=== PATIENT | male | born 1955 | race Two or more races ===

== ENCOUNTER 2018-11-18 13:48 | Emergency (ER) | payer OTHER ==
[2018-11-18 14:59] VITALS: RESP 16
[2018-11-18] MEDS ORDERED: HYDROcodone/APAP 7.5-325MG 1 EACH TAB PO ONE (15:48)
[2018-11-18 16:08] LABS: Basophils % (A) 0 %; Eosinophils # (A) 0.2 k/uL (0-0.7); Eosinophils % (A) 1 %; HGB 16.2 gm/dL (13.0-17.5); Lymphocytes # (A) 1.5 k/uL (1.0-4.8); Lymphocytes % (A) 12 %; MCH 30.2 pg (25.0-35.0); MCHC 31.7 g/dL (31.0-37.0); MCV 95.1 fL (80.0-100.0); Mean Platelet Volume 7.6; Monocytes # (A) 0.5 k/uL (0-1.0); Monocytes % (A) 4 %; Neutrophils # (A) 9.9 k/uL (1.3-7.7); Neutrophils % (A) 81 %; Platelet Count 206 k/uL (150-450); RBC 5.36 m/uL (4.30-5.90); RDW 14.4 % (11.5-15.5); WBC 12.1 k/uL (3.8-10.6)
[2018-11-18 16:16] LABS: Albumin 4.6 g/dL (3.5-5.0); Calcium 9.6 mg/dL (8.4-10.2); Potassium 4.6 mmol/L (3.5-5.1); Total Bilirubin 0.4 mg/dL (0.2-1.3); Total Protein 7.6 g/dL (6.3-8.2)
--- NOTE | 2018-11-18 16:17 | US ---
EXAMINATION TYPE: US venous doppler duplex LE RT DATE OF EXAM: 11/18/2018 4:11 PM COMPARISON: NONE CLINICAL HISTORY: Pain. Pain right lower leg SIDE PERFORMED: right TECHNIQUE: The lower extremity deep venous system is examined utilizing real time linear array sonog clinton with graded compression, doppler sonography and color-flow sonography. VESSELS IMAGED: External Iliac Vein (EIV) Common Femoral Vein Deep Femoral Vein Greater Saphenous Vein * Femoral Vein Popliteal Vein Small Saphenous Vein * Proximal Calf Veins (* superficial vessels) Right Leg: Technical limitations due to patient's body habitus and patient unable to hold still. No evidence of DVT as visualized IMPRESSION: No evidence of deep venous thrombosis in the right leg.
[2018-11-18 16:22] LABS: INR 0.9 (<1.2); Partial Thromboplastin Time 23.8 sec (22.0-30.0); Prothrombin Time 9.5 sec (9.0-12.0)
[2018-11-18] MEDS ORDERED: KETOROLAC 60 MG/2 ML VIAL IM STA (16:58)
--- NOTE | 2018-11-18 17:00 | ED ---
General Adult HPI - General Chief complaint: Extremity Problem,Nontraumatic Stated complaint: Leg pain Time Seen by Provider: 11/18/18 15:35 Source: patient, RN notes reviewed, old records reviewed Mode of arrival: ambulatory Limitations: no limitations - History of Present Illness Initial comments: 63-year-old male patient past medical history hypertension, diabetes presents ED with 3 days of right lower extremity pain. Patient reports he has pain in the anterior and posterior aspect of his calf. Patient reports has been ongoing for 3 days. Patient states that he does stand for long periods of time. Patient denies any falls or trauma. Patient denies any recent long travel, denies any personal history of blood clots, denies any active malignancy or use of exogenous hormone products. Patient denies any chest pain or shortness of breath. Systemic: Pt denies fatigue, fever/chills, rash. Pt denies weakness, night sweats, weight loss. Neuro: Pt denies headache, visual disturbances, syncope or pre-syncope. HEENT: Pt denies ocular discharge or irritation, otalgia, rhinorrhea, pharyngitis or notable lymphadenopathy. Cardiopulmonary: Pt denies chest pain, SOB, heart palpitations, dyspnea on exertion. Abdominal/GI: Pt denies abdominal pain, n/v/d. : Pt denies dysuria, burning w/ urination, frequency/urgency. Denies new onset urinary or bowel incontinence. MSK: Pt denies loss of strength or function in extremities. Neuro: Pt denies new onset weakness, paresthesias. - Related Data Previous Rx's Medication Instructions Recorded Ibuprofen [Motrin] 600 mg PO Q6HR PRN #40 day 11/18/18 Allergies Allergy/AdvReac Type Severity Reaction Status Date / Time No Known Allergies Allergy Verified 11/18/18 14:59 Review of Systems ROS Statement: Those systems with pertinent positive or pertinent negative responses have been documented in the HPI. ROS Other: All systems not noted in ROS Statement are negative. Past Medical History Past Medical History: Atrial Fibrillation, Diabetes Mellitus, Hypertension History of Any Multi-Drug Resistant Organisms: None Reported Past Surgical History: No Surgical Hx Reported Past Psychological History: No Psychological Hx Reported Smoking Status: Never smoker Past Alcohol Use History: None Reported Past Drug Use History: None Reported General Exam - General Exam Comments Initial Comments: Constitutional: NAD, AOX3, Pt has pleasant affect. HEENT: NC/AT, trachea midline, neck supple, no lymphadenopathy. Posterior pharynx non erythematous, without exudates. External ears appear normal, without discharge. Mucous membranes moist. Eyes PERRLA, EOM intact. There is no scleral icterus. No pallor noted. Cardiopulmonary: RRR, no murmurs, rubs or gallops, no JVD noted. Lungs CTAB in anterior and posterior norris. No peripheral edema. Abdominal exam: Abdomen soft and non-distended. Abdomen non-tender to palpation in all 4 quadrants. Bowel sounds active in LLQ. No hepatosplenomegaly. No ecchymosis Neuro: CN II-XII grossly intact. No nuchal rigidity. No raccon eyes, no horn sign, no hemotympanum. No cervical spinal tenderness. MSK: Right lower extremity distal to the knee mildly tender to palpation anterior and posterior aspect. No unilateral leg swelling, no erythema or skin changes. Distal pulses intact and equal. homans sign negative bilaterally. Posterior tibialis and radial pulse +2 bilaterally. Sensation intact in upper and lower extremities. Full active ROM in upper and lower extremities, 5/5 stregnth. Limitations: no limitations Course Vital Signs 11/18/18 14:56 Temperature 97.9 F Pulse Rate 86 Respiratory 16 Rate Blood Pressure 143/93 O2 Sat by Pulse 95 Oximetry Medical Decision Making - Medical Decision Making 63-year-old male patient was ED with 3 days of right lower extremity pain. Patient vital signs stable, afebrile. Physical exam displayed: Right lower extremity distal to the knee mildly tender to palpation anterior and posterior aspect. No unilateral leg swelling, no erythema or skin changes. Distal pulses intact and equal. homans sign negative bilaterally. Posterior tibialis and radial pulse +2 bilaterally. Sensation intact in upper and lower extremities. Full active ROM in upper and lower extremities, 5/5 stregnth. Laboratory investigations revealed mild leukocytosis, overall noncompressive. Ultrasound right lower extremity displayed no evidence of DVT in the right leg. Patient likely suffering from myalgia to prolonged standing. Patient's other anti- inflammatory medications, follow up with primary care provider tomorrow, return to ER if condition worsens. Case discussed with Dr. Mcdaniel. - Lab Data Result diagrams: 11/18/18 15:56 11/18/18 15:56 Lab Results 11/18/18 11/18/18 11/18/18 Range/Units 15:56 15:56 15:56 WBC 12.1 H (3.8-10.6) k/uL RBC 5.36 (4.30-5.90) m/uL Hgb 16.2 (13.0-17.5) gm/dL Hct 51.0 (39.0-53.0) % MCV 95.1 (80.0-100.0) fL MCH 30.2 (25.0-35.0) pg MCHC 31.7 (31.0-37.0) g/dL RDW 14.4 (11.5-15.5) % Plt Count 206 (150-450) k/uL Neutrophils % 81 % Lymphocytes % 12 % Monocytes % 4 % Eosinophils % 1 % Basophils % 0 % Neutrophils # 9.9 H (1.3-7.7) k/uL Lymphocytes # 1.5 (1.0-4.8) k/uL Monocytes # 0.5 (0-1.0) k/uL Eosinophils # 0.2 (0-0.7) k/uL Basophils # 0.0 (0-0.2) k/uL PT 9.5 (9.0-12.0) sec INR 0.9 (<1.2) APTT 23.8 (22.0-30.0) sec Sodium 139 (137-145) mmol/L Potassium 4.6 (3.5-5.1) mmol/L Chloride 102 (98-107) mmol/L Carbon Dioxide 28 (22-30) mmol/L Anion Gap 9 mmol/L BUN 30 H (9-20) mg/dL Creatinine 1.11 (0.66-1.25) mg/dL Est GFR (CKD-EPI)AfAm 82 (>60 ml/min/1.73 sqM) Est GFR (CKD-EPI)NonAf 71 (>60 ml/min/1.73 sqM) Glucose 120 H (74-99) mg/dL Calcium 9.6 (8.4-10.2) mg/dL Total Bilirubin 0.4 (0.2-1.3) mg/dL AST 28 (17-59) U/L ALT 38 (21-72) U/L Alkaline Phosphatase 93 (38-126) U/L Total Protein 7.6 (6.3-8.2) g/dL Albumin 4.6 (3.5-5.0) g/dL Disposition Clinical Impression: Myalgia Disposition: HOME SELF-CARE Condition: Stable Instructions (If sedation given, give patient instructions): Musculoskeletal Pain (ED) Additional Instructions: Patient to adhere to previously discussed treatment plan and will take medication(s) as directed. Patient to follow up with PCP in 1-2 days. Patient to return to ED if symptoms do not improve. Follow-up with primary care physician tomorrow, return to ER if condition worsens in any way. Prescriptions: Ibuprofen [Motrin] 600 mg PO Q6HR PRN #40 day PRN Reason: Pain Is patient prescribed a controlled substance at d/c from ED?: No Referrals: Irina Landon MD [Primary Care Provider] - 1-2 days
[2018-11-18 17:11] VITALS: BP 123/70; PULSE 78; TEMP 97.8
== END 2018-11-18 17:08 | disposition home or self-care (01) ==
LOC: EC 13:48
DX: M79.18 Myalgia, other site (principal)
CPT/HCPCS: 36415; 80053; 85025; 85610; 85730; 93971; 99284; 96372; J1885

== ENCOUNTER 2018-11-26 15:38 | Emergency (ER) | payer OTHER ==
[2018-11-26 15:49] VITALS: RESP 18
[2018-11-26 17:45] LABS: Basophils % (A) 0 %; Eosinophils # (A) 0.2 k/uL (0-0.7); Eosinophils % (A) 2 %; HCT 51.1 % (39.0-53.0); HGB 16.2 gm/dL (13.0-17.5); Lymphocytes # (A) 1.3 k/uL (1.0-4.8); Lymphocytes % (A) 10 %; MCHC 31.6 g/dL (31.0-37.0); MCV 97.9 fL (80.0-100.0); Mean Platelet Volume 8.1; Monocytes # (A) 0.5 k/uL (0-1.0); Monocytes % (A) 4 %; Neutrophils # (A) 10.4 k/uL (1.3-7.7); Neutrophils % (A) 84 %; Platelet Count 212 k/uL (150-450); RBC 5.22 m/uL (4.30-5.90); RDW 15.4 % (11.5-15.5); WBC 12.4 k/uL (3.8-10.6)
[2018-11-26 17:48] LABS: Albumin 4.3 g/dL (3.5-5.0); Calcium 9.7 mg/dL (8.4-10.2); Magnesium 1.6 mg/dL (1.6-2.3); Potassium 4.5 mmol/L (3.5-5.1); Total Bilirubin 0.8 mg/dL (0.2-1.3); Total Protein 7.6 g/dL (6.3-8.2)
[2018-11-26] MEDS ORDERED: MORPHINE SULFATE 4 MG/ML SYRINGE IVP STA (17:56)
[2018-11-26] MEDS ORDERED: SODIUM CHLORIDE 0.9% 1,000 ML IV STA (18:13)
--- NOTE | 2018-11-26 18:28 | ED ---
General Adult HPI - General Source: patient, RN notes reviewed Mode of arrival: wheelchair Limitations: no limitations <Mitchell Wesley - Last Filed: 11/26/18 20:46> <Carine Lott - Last Filed: 11/26/18 21:00> - General Chief complaint: Extremity Injury, Lower Stated complaint: Abd Pain/ Leg Pain Time Seen by Provider: 11/26/18 16:38 - History of Present Illness Initial comments: 63-year-old male with a past medical history of atrial fibrillation, diabetes myelitis presents to the emergency department for a chief complaint of right leg pain. Patient states that he has had cramping and pain of the right leg for the past 10 days. States that he did fall down onto his right anterior knee about 1.5 months ago but did not have pain in the right knee until about 10 days ago. States his pain is a cramping sharp pain that radiates from his right ankle all the way up to his abdomen. Denies any back pain. Denies bladder or bowel changes. Denies saddle anesthesia. Patient denies any fevers or chills. States he has been laying in bed for 10 days and only getting up to go to the bathroom because of this pain. She does state that when the cramping started radiates up into his abdomen. States that when he is at rest he generally has no pain at all. Patient has no other complaints at this time including shortness of breath, chest pain, nausea or vomiting, headache, or visual changes. (Mitchell Wesley) - Related Data Home Medications Medication Instructions Recorded Confirmed ALPRAZolam [Xanax] 0.25 mg PO Q8H 11/26/18 11/26/18 Atorvastatin Calcium [Lipitor] 10 mg PO DAILY 11/26/18 11/26/18 Ibuprofen [Motrin] 800 mg PO BID 11/26/18 11/26/18 Verapamil HCl [Verapamil ER] 120 mg PO DAILY 11/26/18 11/26/18 metFORMIN HCL 500 mg PO BID 11/26/18 11/26/18 Allergies Allergy/AdvReac Type Severity Reaction Status Date / Time No Known Allergies Allergy Verified 11/26/18 17:11 Review of Systems ROS Other: All systems not noted in ROS Statement are negative. <Mitchell Wesley - Last Filed: 11/26/18 20:46> ROS Other: All systems not noted in ROS Statement are negative. <Carine Lott E - Last Filed: 11/26/18 21:00> ROS Statement: Those systems with pertinent positive or pertinent negative responses have been documented in the HPI. Past Medical History Past Medical History: Atrial Fibrillation, Diabetes Mellitus, Hypertension History of Any Multi-Drug Resistant Organisms: None Reported Past Surgical History: No Surgical Hx Reported Past Psychological History: No Psychological Hx Reported Smoking Status: Current some day smoker Past Alcohol Use History: None Reported Past Drug Use History: None Reported <Mitchell Wesley P - Last Filed: 11/26/18 20:46> General Exam Limitations: no limitations General appearance: alert, in no apparent distress Head exam: Present: atraumatic, normocephalic, normal inspection Eye exam: Present: normal appearance, PERRL, EOMI. Absent: scleral icterus, conjunctival injection, periorbital swelling ENT exam: Present: normal exam, mucous membranes moist Neck exam: Present: normal inspection, full ROM. Absent: tenderness, meningismus, lymphadenopathy Respiratory exam: Present: normal lung sounds bilaterally. Absent: respiratory distress, wheezes, rales, rhonchi, stridor Cardiovascular Exam: Present: regular rate, normal rhythm, normal heart sounds. Absent: systolic murmur, diastolic murmur, rubs, gallop, clicks GI/Abdominal exam: Present: soft, tenderness (No tenderness noted in the right lower quadrant or else where in the abdomen), normal bowel sounds. Absent: d istended, guarding, rebound, rigid Extremities exam: Present: tenderness (Patient has mild tenderness noted to the lateral right knee and proximal tib-fib. No other tenderness noted.), normal capillary refill (Capillary refill less than 2 seconds, DP pulse 2+ in the right lower extremity and equal bilaterally.), other (Compartments are soft, no crepitus palpated, no erythema or edema signs of infection noted throughout the leg. Scrotum appears normal. No evidence of infection in the groin. No lesions.). Absent: joint swelling (No edema present in the right lower e xtremity.) <Mitchell Wesley P - Last Filed: 11/26/18 20:46> Course <Mitchell Wesley P - Last Filed: 11/26/18 20:46> Vital Signs 11/26/18 11/26/18 11/26/18 15:44 18:42 20:13 Temperature 97.5 F L 97.9 F Pulse Rate 113 H 89 90 Respiratory 18 18 18 Rate Blood Pressure 141/87 115/75 116/69 O2 Sat by Pulse 98 95 96 Oximetry - Reevaluation(s) Reevaluation #1: 11/26/18 18:29 Patient had an ultrasound on 11/18/2018 after this pain started which showed no evidence of DVT. Report reviewed. (Mitchell Wesley) Reevaluation #2: 11/26/181944 Patient reevaluated, resting comfortably laying on his left side. (Mitchell Wesley) EKG Findings - EKG Comments: EKG Findings:: Atrial fibrillation, ventricular rate 95, QRS duration 104, QTc 464 <Mitchell Welsey - Last Filed: 11/26/18 20:46> Medical Decision Making - Lab Data Result diagrams: 11/26/18 17:27 11/26/18 17:27 <Mitchell Wesley - Last Filed: 11/26/18 20:46> - Lab Data Result diagrams: 11/26/18 17:27 11/26/18 17:27 <Carine Lott - Last Filed: 11/26/18 21:00> - Medical Decision Making 63-year-old male with a past medical history of atrial fibrillation, diabetes mellitus presents to the emergency department for right leg pain. Patient sta kimberly it is a cramping pain that radiates from his calf up to his abdomen for the past 10 days. States that he did fall onto his right anterior knee about 1.5 months ago but did not have any pain until 10 days ago. States that if he lays still the pain is much better but when he starts to move it starts to cramp up again. Patient noted to have an ultrasound performed on 11/18/2018 that was negative for DVT. On presentation patient is initially tachycardic. However once pain was controlled to this did normalize. Exam did not reveal any evidence of infection during skin exam of the fall leg. No crepitus. Compartments are soft. There is some tenderness noted to the lateral right knee. No edema present. Neurovascular status is intact in the right lower extremity. Dr. Lott also evaluated the patient. CBC does show white blood cell count of 12.4, likely reactive in nature. CMP does show evidence of dehydration with a BUN to creatinine ratio 27, patient given a liter of fluids. Patient also given a liter of fluids for mildly elevated creatinine kinase of 479. Femur and tib-fib x-rays were negative for fracture. Patient was sent in by his primary care provider Dr. Landon. Dr. Lott did consult with him and he was concerned for DVT and PE. Therefore ultrasound was reordered of the right lower extremities which was again negative for DVT. D-dimer was ordered which was elevated 2.60. At that time patient underwent computed tomography scan of the chest. CTA showed no evidence of pulmonary embolism. There is a mild aneurysm ascending aorta which is not consistent with patient's symptoms however patient was notified and he will follow-up with his doctor for this. Patient was reevaluated and he is ambulatory with no pain after pain medication given. Feels much better. Dr. Lott spoke again with Dr. Landon and they agreed on a discharge plan and follow-up. Patient will be given starter pack of Tylenol 3. Recommended he follow up with Dr. Landon tomorrow. Recommended he return here if he has any worsening symptoms. (Mitchell Wesley) I, Dr. Carine Lott, Personally saw and examined the patient. I have reviewed and agree with the [employer] PROFESSIONAL/PA findings, including all diagnostic interpretations and treatment plans as written unless otherwise stated. I was present for the donis portions of any procedures and the inclusive time noted for any critical care treatment. The patient had no evidence of cellulitis, no crepitus on physical exam, his right lower extremity was warm and well-perfused with a 2+ DP pulse. I spoke with Dr. Landon guarding the patient, since he had sent him to the emergency department. The patient underwent lower extremity Dopplers, a d- dimer, as well as a CTA. CTA showed a thoracic ascending aortic aneurysm, however the patient is not having any chest pain and this is unlikely the cause of his right lower extremity pain. Dr. Landon stated the patient is stable for outpatient follow-up with him in office. (Carine Lott) - Lab Data Lab Results 11/26/18 11/26/18 11/26/18 Range/Units 17:27 17:27 17:27 WBC 12.4 H (3.8-10.6) k/uL RBC 5.22 (4.30-5.90) m/uL Hgb 16.2 (13.0-17.5) gm/dL Hct 51.1 (39.0-53.0) % MCV 97.9 (80.0-100.0) fL MCH 31.0 (25.0-35.0) pg MCHC 31.6 (31.0-37.0) g/dL RDW 15.4 (11.5-15.5) % Plt Count 212 (150-450) k/uL Neutrophils % 84 % Lymphocytes % 10 % Monocytes % 4 % Eosinophils % 2 % Basophils % 0 % Neutrophils # 10.4 H (1.3-7.7) k/uL Lymphocytes # 1.3 (1.0-4.8) k/uL Monocytes # 0.5 (0-1.0) k/uL Eosinophils # 0.2 (0-0.7) k/uL Basophils # 0.0 (0-0.2) k/uL PT (9.0-12.0) sec INR (<1.2) APTT (22.0-30.0) sec D-Dimer 2.60 H (<0.60) mg/L FEU Sodium 138 (137-145) mmol/L Potassium 4.5 (3.5-5.1) mmol/L Chloride 101 (98-107) mmol/L Carbon Dioxide 23 (22-30) mmol/L Anion Gap 14 mmol/L BUN 34 H (9-20) mg/dL Creatinine 1.25 (0.66-1.25) mg/dL Est GFR (CKD-EPI)AfAm 71 (>60 ml/min/1.73 sqM) Est GFR (CKD-EPI)NonAf 61 (>60 ml/min/1.73 sqM) Glucose 121 H (74-99) mg/dL Calcium 9.7 (8.4-10.2) mg/dL Magnesium 1.6 (1.6-2.3) mg/dL Total Bilirubin 0.8 (0.2-1.3) mg/dL AST 67 H (17-59) U/L ALT 38 (21-72) U/L Alkaline Phosphatase 74 (38-126) U/L Creatine Kinase 479 H (55-170) U/L Troponin I (0.000-0.034) ng/mL Total Protein 7.6 (6.3-8.2) g/dL Albumin 4.3 (3.5-5.0) g/dL 11/26/18 11/26/18 Range/Units 17:30 17:30 WBC (3.8-10.6) k/uL RBC (4.30-5.90) m/uL Hgb (13.0-17.5) gm/dL Hct (39.0-53.0) % MCV (80.0-100.0) fL MCH (25.0-35.0) pg MCHC (31.0-37.0) g/dL RDW (11.5-15.5) % Plt Count (150-450) k/uL Neutrophils % % Lymphocytes % % Monocytes % % Eosinophils % % Basophils % % Neutrophils # (1.3-7.7) k/uL Lymphocytes # (1.0-4.8) k/uL Monocytes # (0-1.0) k/uL Eosinophils # (0-0.7) k/uL Basophils # (0-0.2) k/uL PT 9.9 (9.0-12.0) sec INR 0.9 (<1.2) APTT 18.9 L (22.0-30.0) sec D-Dimer (<0.60) mg/L FEU Sodium (137-145) mmol/L Potassium (3.5-5.1) mmol/L Chloride (98-107) mmol/L Carbon Dioxide (22-30) mmol/L Anion Gap mmol/L BUN (9-20) mg/dL Creatinine (0.66-1.25) mg/dL Est GFR (CKD-EPI)AfAm (>60 ml/min/1.73 sqM) Est GFR (CKD-EPI)NonAf (>60 ml/min/1.73 sqM) Glucose (74-99) mg/dL Calcium (8.4-10.2) mg/dL Magnesium (1.6-2.3) mg/dL Total Bilirubin (0.2-1.3) mg/dL AST (17-59) U/L ALT (21-72) U/L Alkaline Phosphatase (38-126) U/L Creatine Kinase (55-170) U/L Troponin I <0.012 (0.000-0.034) ng/mL Total Protein (6.3-8.2) g/dL Albumin (3.5-5.0) g/dL Disposition Is patient prescribed a controlled substance at d/c from ED?: No Time of Disposition: 20:48 <Mitchell Wesley P - Last Filed: 11/26/18 20:46> <Carine Lott - Last Filed: 11/26/18 21:00> Clinical Impression: Leg pain, right, Myalgia, Dehydration Disposition: HOME SELF-CARE Condition: Good Instructions (If sedation given, give patient instructions): Leg Pain (ED) Additional Instructions: Please take Motrin for pain. If pain is severe take Tylenol 3. Follow up with her primary care provider tomorrow. If you have worsening symptoms be sure to return to the nearest emergency department. Referrals: Irina Landon MD [Primary Care Provider] - 1-2 days
--- NOTE | 2018-11-26 18:30 | XR ---
EXAMINATION TYPE: XR tibia fibula RT DATE OF EXAM: 11/26/2018 COMPARISON: NONE HISTORY: Leg pain TECHNIQUE: 4 views FINDINGS: Tibia and fibula appear intact. Knee joint and ankle joint appear intact. I see no fracture nor dislocation. IMPRESSION: Negative right tibia and fibula exam.
--- NOTE | 2018-11-26 18:30 | XR ---
EXAMINATION TYPE: XR femur RT DATE OF EXAM: 11/26/2018 COMPARISON: NONE HISTORY: Leg pain TECHNIQUE: 4 views FINDINGS: I see no fracture nor dislocation. Knee joint and hip joint appear intact. IMPRESSION: Negative right femur exam.
--- NOTE | 2018-11-26 19:27 | US ---
EXAMINATION TYPE: US venous doppler duplex LE RT DATE OF EXAM: 11/26/2018 7:18 PM COMPARISON: US 2016 CLINICAL HISTORY: Pain. Right leg pain x 10 days. No hx of DVT. Pt not on blood thinners. SIDE PERFORMED: Right TECHNIQUE: The lower extremity deep venous system is examined utilizing real time linear array sonog clinton with graded compression, doppler sonography and color-flow sonography. VESSELS IMAGED: External Iliac Vein (EIV) Common Femoral Vein Deep Femoral Vein Greater Saphenous Vein * Femoral Vein Popliteal Vein Small Saphenous Vein * Proximal Calf Veins (* superficial vessels) Right Leg: Limitations due to body habitus and patient's inability to hold still. No evidence of DVT in veins imaged from prox calf veins to EIV. IMPRESSION: No evidence of deep venous thrombosis in the right leg.
--- NOTE | 2018-11-26 20:18 | CT ---
EXAMINATION TYPE: CT chest angio for PE DATE OF EXAM: 11/26/2018 COMPARISON: None HISTORY: Chest and epigastric pain. CT DLP: 889.8 mGycm Automated exposure control for dose reduction was used. CONTRAST: CT Chest for pulmonary embolism performed with with IV Contrast, patient injected with 100ml mL of Is ovue 370. FINDINGS: The lungs are clear of consolidation. There is no evidence of a pulmonary mass. There is some mild li near density in the lingula left upper lobe consistent with scarring and atelectasis. There is no per icardial effusion. There are no hilar masses. There is no mediastinal adenopathy. Thoracic aorta shows mild atheromatous change. There is mild aneurysm of the ascending aorta measures 4.2 cm. There are small bronchial lym ph nodes on the right side that measure less than 1 cm. I see no filling defects in the pulmonary arteries. There is some spurring in the thoracic spine. I s ee no bony destructive process. There is rounded 2.5 cm low-density right adrenal mass consistent wit h benign disease. IMPRESSION: No evidence of pulmonary embolism. Mild aneurysm ascending aorta. Nonspecific right bronchial lymph nodes.
[2018-11-26 20:41] LABS: INR 0.9 (<1.2); Prothrombin Time 9.9 sec (9.0-12.0)
[2018-11-26 20:42] LABS: Partial Thromboplastin Time 18.9 sec (22.0-30.0)
[2018-11-26] MEDS ORDERED: ACET/COD 300 MG/30 MG STARTER PACK 6 TAB BTL PO STA (20:50)
[2018-11-26 21:11] VITALS: BP 144/92; PULSE 89; TEMP 97.5
== END 2018-11-26 21:10 | disposition home or self-care (01) ==
LOC: EC 15:38
DX: E86.0 Dehydration (principal); M79.18 Myalgia, other site; R79.89 Other specified abnormal findings of blood chemistry; R79.1 Abnormal coagulation profile; I71.2 Thoracic aortic aneurysm, without rupture; I48.91 Unspecified atrial fibrillation; E11.9 Type 2 diabetes mellitus without complications; I10 Essential (primary) hypertension; F17.200 Nicotine dependence, unspecified, uncomplicated; Z79.1 Long term (current) use of non-steroidal anti-inflammatories (NSAID); Z79.84 Long term (current) use of oral hypoglycemic drugs; Z79.899 Other long term (current) drug therapy; Z91.81 History of falling
CPT/HCPCS: 99284; 96374; 96361; 36415; 93005; 85379; 80053; 82550; 83735; 84484; 85025; 85610; 85730; 73552; 73590; 93971; 71275; J2270; Q9967

== ENCOUNTER → 2018-12-27 | Outpatient (CLI) | payer OTHER ==
--- NOTE | 2018-12-27 10:54 | XR ---
EXAM TYPE: LUMBAR SPINE X RAY SERIES COMPARISON: NONE HISTORY: Low back pain TECHNIQUE: 4 views are submitted. FINDINGS: Alignment is anatomic. The pedicles are intact. The transverse processes are intact. There is no spondylolisthesis. Diffuse osteopenia. Hypertrophic and degenerative change of the vertebral column with most marked findings involving L3-S1. Facet arthropathy noted. IMPRESSION: 1. Multilevel moderate degenerative disc disease with facet arthropathy. Findings most marked at leve ls L3-S1..
== END | disposition home or self-care (01) ==
LOC: RADXRMAIN 07:47
PROVIDERS: ATTEND Internal Medicine
DX: M51.17 Intervertebral disc disorders with radiculopathy, lumbosacral region (principal); M46.97 Unspecified inflammatory spondylopathy, lumbosacral region
CPT/HCPCS: 72100

== ENCOUNTER → 2019-01-07 | Outpatient (CLI) | payer OTHER ==
--- NOTE | 2019-01-07 13:35 | US ---
EXAMINATION TYPE: US liver DATE OF EXAM: 01/07/2019 COMPARISON: CTA chest November 26, 2018 CLINICAL HISTORY: R94.5 ABN LIVER FUNCTIONS. abn labs. No abdomen pain. EXAM MEASUREMENTS: Liver Length: 15.5 cm Gallbladder Wall: 0.2 cm CBD: 0.5 cm Right Kidney: 10.4 x 5.6 x 5.8 cm Pancreas: Limited visualization Liver: Appears heterogenous Gallbladder: Multiple mobile echogenic foci Evidence for sonographic Villa's sign: neg CBD: wnl Right Kidney: Medial mid cystic appearing lesion seen = 3.7 x 4.0 x 2.7 cm Exam suboptimal standard patient's large body habitus. Visualized portion of pancreas shows no mass o r dilatation. Visualized liver is heterogeneously hyperechoic without mass or ductal dilatation image s saved. Gallbladder shows shadowing mobile gallstones. No pericholecystic fluid or abnormal gallblad treva wall thickening. Right kidney shows no hydronephrosis with simple appearing 3.7 cm cyst suspected centrally though this is not greatly evaluated on images saved as it is hypoechoic and anechoic in a ppearance with some suggestion of increased through transmission. IMPRESSION: Small gallstones without secondary ultrasound evidence for acute cholecystitis. Suspect m ild diffuse fatty infiltration of liver.
== END | disposition home or self-care (01) ==
LOC: RADUSWWP 09:24
PROVIDERS: ATTEND Internal Medicine
DX: K80.20 Calculus of gallbladder without cholecystitis without obstruction (principal)
CPT/HCPCS: 76705

== ENCOUNTER 2019-07-30 19:21 | Emergency (ER) | payer OTHER ==
[2019-07-30] MEDS ORDERED: SODIUM CHLORIDE 0.9% 1,000 ML IV STA (19:27)
--- NOTE | 2019-07-30 20:04 | ED ---
SOB HPI - General Chief Complaint: Shortness of Breath Stated Complaint: Coughing up blood Time Seen by Provider: 07/30/19 19:25 Source: patient, RN notes reviewed, old records reviewed Mode of arrival: ambulatory Limitations: no limitations - History of Present Illness Initial Comments: This is a 64-year-old male DF for evaluation patient Dese for evaluation regards to shortness of breath with cough. Patient is recently of quitting smoking he does have history of atrial fibrillation elevated blood pressure not on blood thinners. He has cough with some sputum bloody sputum which is also had before. Patient does admit to some swelling some shortness of breath denying fevers states he is always pretty sweating he was able to go on his treadmill last night without difficulty. No significant new shortness of breath distress rest is pretty chronic. He does state that he has a coughing of blood sinus morning it is bright red was originally Sputum, melena status as resolved. Patient states it started with significant coughing fits Danielle bili was related to before. No chest pain. No travel history no known sick contacts MD Complaint: shortness of breath, cough -: days(s) Severity: mild Severity scale (1-10): 3 Quality: aching Consistency: constant Improves With: nothing Worsens With: nothing Known History Of: COPD, congestive heart failure Context: recent URI Associated Symptoms: cough, sputum production (bloody) Treatments Prior to Arrival: none - Related Data Home Medications Medication Instructions Recorded Confirmed ALPRAZolam [Xanax] 0.25 mg PO Q8H PRN 11/26/18 07/30/19 Atorvastatin Calcium [Lipitor] 10 mg PO DAILY 11/26/18 07/30/19 Ibuprofen [Motrin] 800 mg PO BID 11/26/18 07/30/19 Verapamil HCl [Verapamil ER] 120 mg PO DAILY 11/26/18 07/30/19 metFORMIN HCL [Glucophage] 500 mg PO DAILY 07/30/19 07/30/19 Allergies Allergy/AdvReac Type Severity Reaction Status Date / Time No Known Allergies Allergy Verified 07/30/19 20:38 Review of Systems ROS Statement: Those systems with pertinent positive or pertinent negative responses have been documented in the HPI. ROS Other: All systems not noted in ROS Statement are negative. Past Medical History Past Medical History: Atrial Fibrillation, Diabetes Mellitus, Hypertension History of Any Multi-Drug Resistant Organisms: None Reported Past Surgical History: No Surgical Hx Reported Past Psychological History: No Psychological Hx Reported Smoking Status: Current some day smoker Past Alcohol Use History: None Reported Past Drug Use History: None Reported General Exam Limitations: no limitations General appearance: alert, in no apparent distress Head exam: Present: atraumatic, normocephalic, normal inspection Eye exam: Present: normal appearance, PERRL, EOMI. Absent: scleral icterus, conjunctival injection, periorbital swelling ENT exam: Present: normal exam, mucous membranes moist Neck exam: Present: normal inspection. Absent: tenderness, meningismus, lymp hadenopathy Respiratory exam: Present: normal lung sounds bilaterally, wheezes, rhonchi, decreased breath sounds, prolonged expiratory. Absent: respiratory distress, rales, stridor Cardiovascular Exam: Present: regular rate, normal rhythm, normal heart sounds. Absent: systolic murmur, diastolic murmur, rubs, gallop, clicks GI/Abdominal exam: Present: soft, normal bowel sounds. Absent: distended, tenderness, guarding, rebound, rigid Extremities exam: Present: normal inspection, full ROM, normal capillary refill. Absent: tenderness, pedal edema, joint swelling, calf tenderness Back exam: Present: normal inspection Neurological exam: Present: alert, oriented X3, CN II-XII intact Psychiatric exam: Present: normal affect, normal mood Skin exam: Present: warm, dry, intact, normal color. Absent: rash Course Vital Signs 07/30/19 07/30/19 07/30/19 19:22 19:41 21:08 Temperature 98.3 F 98.8 F 98.2 F Pulse Rate 95 78 73 Respiratory 23 20 18 Rate Blood Pressure 179/95 150/112 173/90 O2 Sat by Pulse 94 L 92 L 97 Oximetry - Reevaluation(s) Reevaluation #1: 07/30/19 21:15 Records reviewed Reevaluation #2: 07/30/19 21:15 Patient still coughing minimal blood here in the ER Reevaluation #3: 07/30/19 21:15 A she has no significant respiratory distress feels good for discharge home Medical Decision Making - Medical Decision Making 64 male here with hemoptysis admits to cleaning with significant amount of bleach patient does have recent history of quitting smoking no significant diagnoses of bronchitis A. fib no blood thinners mild CHF on labs and x-ray patient given diuretic here in the ER, patient will be given breathing treatment to continue breathing treatments at home return if symptoms worsen - Lab Data Result diagrams: 07/30/19 19:47 07/30/19 19:47 Lab Results 07/30/19 07/30/19 07/30/19 Range/Units 19:47 19:47 19:47 WBC 9.3 (3.8-10.6) k/uL RBC 5.01 (4.30-5.90) m/uL Hgb 15.3 (13.0-17.5) gm/dL Hct 48.5 (39.0-53.0) % MCV 96.8 (80.0-100.0) fL MCH 30.6 (25.0-35.0) pg MCHC 31.6 (31.0-37.0) g/dL RDW 14.1 (11.5-15.5) % Plt Count 185 (150-450) k/uL Neutrophils % 57 % Lymphocytes % 32 % Monocytes % 6 % Eosinophils % 2 % Basophils % 1 % Neutrophils # 5.3 (1.3-7.7) k/uL Lymphocytes # 3.0 (1.0-4.8) k/uL Monocytes # 0.6 (0-1.0) k/uL Eosinophils # 0.2 (0-0.7) k/uL Basophils # 0.0 (0-0.2) k/uL PT 9.5 (9.0-12.0) sec INR 0.9 (<1.2) APTT 23.8 (22.0-30.0) sec D-Dimer 0.53 (<0.60) mg/L FEU Sodium 138 (137-145) mmol/L Potassium 4.4 (3.5-5.1) mmol/L Chloride 101 (98-107) mmol/L Carbon Dioxide 28 (22-30) mmol/L Anion Gap 9 mmol/L BUN 23 H (9-20) mg/dL Creatinine 1.00 (0.66-1.25) mg/dL Est GFR (CKD-EPI)AfAm >90 (>60 ml/min/1.73 sqM) Est GFR (CKD-EPI)NonAf 79 (>60 ml/min/1.73 sqM) Glucose 109 H (74-99) mg/dL Calcium 9.5 (8.4-10.2) mg/dL Phosphorus 4.8 H (2.5-4.5) mg/dL Magnesium 1.7 (1.6-2.3) mg/dL Total Bilirubin 0.3 (0.2-1.3) mg/dL AST 30 (17-59) U/L ALT 21 (4-49) U/L Alkaline Phosphatase 64 (38-126) U/L Creatine Kinase 149 (55-170) U/L Troponin I (0.000-0.034) ng/mL NT-Pro-B Natriuret Pep pg/mL Total Protein 7.1 (6.3-8.2) g/dL Albumin 4.3 (3.5-5.0) g/dL 07/30/19 07/30/19 Range/Units 19:47 19:47 WBC (3.8-10.6) k/uL RBC (4.30-5.90) m/uL Hgb (13.0-17.5) gm/dL Hct (39.0-53.0) % MCV (80.0-100.0) fL MCH (25.0-35.0) pg MCHC (31.0-37.0) g/dL RDW (11.5-15.5) % Plt Count (150-450) k/uL Neutrophils % % Lymphocytes % % Monocytes % % Eosinophils % % Basophils % % Neutrophils # (1.3-7.7) k/uL Lymphocytes # (1.0-4.8) k/uL Monocytes # (0-1.0) k/uL Eosinophils # (0-0.7) k/uL Basophils # (0-0.2) k/uL PT (9.0-12.0) sec INR (<1.2) APTT (22.0-30.0) sec D-Dimer (<0.60) mg/L FEU Sodium (137-145) mmol/L Potassium (3.5-5.1) mmol/L Chloride (98-107) mmol/L Carbon Dioxide (22-30) mmol/L Anion Gap mmol/L BUN (9-20) mg/dL Creatinine (0.66-1.25) mg/dL Est GFR (CKD-EPI)AfAm (>60 ml/min/1.73 sqM) Est GFR (CKD-EPI)NonAf (>60 ml/min/1.73 sqM) Glucose (74-99) mg/dL Calcium (8.4-10.2) mg/dL Phosphorus (2.5-4.5) mg/dL Magnesium (1.6-2.3) mg/dL Total Bilirubin (0.2-1.3) mg/dL AST (17-59) U/L ALT (4-49) U/L Alkaline Phosphatase (38-126) U/L Creatine Kinase (55-170) U/L Troponin I <0.012 (0.000-0.034) ng/mL NT-Pro-B Natriuret Pep 1130 pg/mL Total Protein (6.3-8.2) g/dL Albumin (3.5-5.0) g/dL - EKG Data -: EKG Interpreted by Me (EKG shows A. fib of 76/96 QTC 425) - Radiology Data Radiology results: report reviewed (Chest x-ray is negative for significant acute disease), image reviewed Disposition Clinical Impression: Hemoptysis, Acute bronchitis Disposition: HOME SELF-CARE Condition: Good Instructions (If sedation given, give patient instructions): Acute Bronchitis (ED), Hemoptysis (ED) Is patient prescribed a controlled substance at d/c from ED?: No Referrals: Irina Landon MD [Primary Care Provider] - 1-2 days
[2019-07-30 20:27] LABS: ALT 21 U/L (4-49); AST 30 U/L (17-59); African American GFR (CKD) >90 (>60 ml/min/1.73 sqM); Albumin 4.3 g/dL (3.5-5.0); Alkaline Phosphatase 64 U/L (38-126); Anion Gap 9 mmol/L; Basophils % (A) 1 %; Blood Urea Nitrogen 23 mg/dL (9-20); Calcium 9.5 mg/dL (8.4-10.2); Carbon Dioxide 28 mmol/L (22-30); Chloride 101 mmol/L (98-107); Creatine Kinase 149 U/L (55-170); Eosinophils # (A) 0.2 k/uL (0-0.7); Eosinophils % (A) 2 %; Glucose 109 mg/dL (74-99); HCT 48.5 % (39.0-53.0); HGB 15.3 gm/dL (13.0-17.5); Lymphocytes % (A) 32 %; MCH 30.6 pg (25.0-35.0); MCHC 31.6 g/dL (31.0-37.0); MCV 96.8 fL (80.0-100.0); Magnesium 1.7 mg/dL (1.6-2.3); Mean Platelet Volume 8.2; Monocytes # (A) 0.6 k/uL (0-1.0); Monocytes % (A) 6 %; Neutrophils # (A) 5.3 k/uL (1.3-7.7); Neutrophils % (A) 57 %; Non-African American GFR(CKD) 79 (>60 ml/min/1.73 sqM); Phosphorus 4.8 mg/dL (2.5-4.5); Platelet Count 185 k/uL (150-450); Potassium 4.4 mmol/L (3.5-5.1); RBC 5.01 m/uL (4.30-5.90); RDW 14.1 % (11.5-15.5); Sodium 138 mmol/L (137-145); Total Bilirubin 0.3 mg/dL (0.2-1.3); Total Protein 7.1 g/dL (6.3-8.2); WBC 9.3 k/uL (3.8-10.6)
[2019-07-30 20:36] LABS: D-Dimer 0.53 mg/L FEU (<0.60); INR 0.9 (<1.2); Partial Thromboplastin Time 23.8 sec (22.0-30.0); Prothrombin Time 9.5 sec (9.0-12.0)
--- NOTE | 2019-07-30 20:48 | XR ---
EXAMINATION TYPE: XR chest 1V DATE OF EXAM: 07/30/2019 COMPARISON: NONE HISTORY: Coughing blood TECHNIQUE: FINDINGS: There is no heart failure nor confluent pneumonic infiltrate. Costophrenic angles are clear . Bony thorax is intact. IMPRESSION: No active cardiopulmonary disease.
[2019-07-30] MEDS ORDERED: IPRATROPIUM-ALBUTEROL 3 ML NEB INHALATION STA (20:49)
[2019-07-30] MEDS ORDERED: FUROSEMIDE 10 MG/ML 4 ML VIAL IV STA (20:52)
[2019-07-30] MEDS ORDERED: DEXAMETHASONE SOD PHOSPHATE 10 MG/ML 1 ML VIAL IV STA (20:52)
[2019-07-30 21:11] VITALS: RESP 18
[2019-07-30 21:47] VITALS: PULSE 78
[2019-07-30 21:57] VITALS: BP 174/90; TEMP 98.3
== END 2019-07-30 21:56 | disposition home or self-care (01) ==
LOC: EC 19:21
DX: J20.9 Acute bronchitis, unspecified (principal); I50.9 Heart failure, unspecified; F17.200 Nicotine dependence, unspecified, uncomplicated; I48.91 Unspecified atrial fibrillation; E11.9 Type 2 diabetes mellitus without complications; Z79.899 Other long term (current) drug therapy; Z79.84 Long term (current) use of oral hypoglycemic drugs
CPT/HCPCS: 36415; 94640; 93005; 85379; 83880; 80053; 82550; 83735; 84100; 84484; 85025; 85610; 85730; 87040; 71045; 99285; 96374; 96375; 96361; J1100; J1940